=== PATIENT | female | born 2000 | race Caucasian/White ===

== ENCOUNTER 2019-05-26 00:07 | Emergency (ER) | payer OTHER, SELFPAY ==
[2019-05-26 00:21] VITALS: BP 129/67; PULSE 101; RESP 19; TEMP 36.8; O2SAT 100; BMI 23.0
--- NOTE | 2019-05-26 01:20 | ED_ITS ---
HPI - Back Pain/Injury General Chief Complaint: Back Pain/Injury Stated Complaint: back pain Time Seen by Provider: 05/26/19 00:09 Source: patient Mode of arrival: Wheelchair Limitations: no limitations History of Present Illness HPI Narrative: 18-year-old female nonsmoker presents with multiple family members in the chief complaint severe sharp and stabbing right lower back pain with radiation down her right leg. 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 She has been to physical therapy and was recently cleared for light duty at work. This evening, in the absence of any significant injury, she developed a severe sharp and stabbing pain with radiation down her right leg. She states that she was again bending and twisting. She denies any direct trauma. She denies fever or chills. She denies any trouble controlling bowel or bladder she denies saddle anesthesia. MD Complaint: back pain Onset (ago): hour(s) Duration: constant Similar Symptoms Previously: Yes Location: lumbar spine Severity: severe Quality: sharp and stabbing Radiation: right leg Relieving factors: immobilization Exacerbating factors: movement Context: while lifting and turning/twisting Associated symptoms: denies other symptoms Related Data Previous Rx's Medication Instructions Recorded hydrocodone-acetaminophen 1 tab PO Q4-6H PRN #10 tab 05/26/19 ketorolac 10 mg PO Q6H PRN #14 tab 05/26/19 lidocaine [Lidoderm] 1 patch TOP DAILY #15 each 05/26/19 prednisone 10 mg PO DAILY #30 tab 05/26/19 Allergies Allergy/AdvReac Type Severity Reaction Status Date / Time No Known Drug Allergies Allergy Verified 05/26/19 01:29 Review of Systems Constitutional Constitutional: Denies chills, Denies fatigue, Denies fever(s), Denies frequent falls, Denies lethargy and Denies weakness Eyes Eyes: Denies change in vision, Denies eye discharge, Denies irritation and Denies loss of vision ENT Ears, Nose, Mouth, and Throat: Denies change in voice, Denies dizziness, Denies neck pain, Denies sore throat and Denies throat swelling Cardiovascular Cardiovascular: Denies chest pain, Denies irregular heart rhythm, Denies lightheadedness, Denies palpitations, Denies dyspnea, Denies dyspnea on exertion and Denies orthopnea Respiratory Respiratory: Denies cough, Denies dyspnea, Denies dyspnea on exertion and Denies wheezing Gastrointestinal Gastrointestinal: Denies abdominal pain, Denies change in bowel habits, Denies diarrhea, Denies nausea and Denies vomiting Genitourinary Genitourinary: Denies hematuria, Denies flank pain, Denies urinary incontinence and Denies urinary urgency Musculoskeletal Musculoskeletal: Reports back pain, Reports limited range of motion, Denies muscle weakness, Denies neck pain, Denies numbness, Reports radiating pain into limb and Denies tingling Integumentary/Breasts Skin/Breast: Denies pruritus, Denies erythema, Denies rash and Denies wounds Neurologic Neurologic: Denies behavioral changes, Denies confusion, Denies dizziness, Denies frequent falls, Denies loss of vision, Denies numbness, Denies tingling and Denies weakness Psychiatric Psychiatric: Denies anxiety, Denies behavioral changes, Denies confusion, Denies depression, Denies homicidal ideation and Denies suicidal ideation Endocrine Endocrine: Denies fatigue, Denies flushing and Denies palpitations Hematologic/Lymphatic Hematologic/Lymphatic: Denies easy bruising Allergic/Immunologic Allergic/Immunologic: Denies urticaria, Denies throat swelling and Denies wheezing Patient History Social History Smoking Status: Never smoker Smoking Status: Never smoker Substance Use Type: does not use Exam Narrative Exam Narrative: GENERAL: [18] year old patient appears stated age. Well- nourished, well-developed patient, in mild distress. Tearful, in pain HEAD: Atraumatic. Normocephalic. EYES: Pupils equal round and reactive. Extraocular motions intact. No scleral icterus. No injection or drainage. ENT: Nose without bleeding, purulent drainage. Throat without erythema, tonsillar hypertrophy or exudate. Airway patent. NECK: Trachea midline. Non tender CARDIOVASCULAR: Regular rate and rhythm without murmurs, gallops, or rubs. RESPIRATORY: Clear to auscultation. Breath sounds equal bilaterally. No wheezes, rales, or rhonchi. GASTROINTESTINAL: Abdomen soft, non-tender, nondistended. EXTREMITIES: No edema or joint tenderness. BACK: metal cut off saw tender but free of any obvious external abnormalities. Patient exam notes decreased range of motion and muscle spasm, but no CVA tenderness, or vertebral point tenderness. There are no symptoms of cauda equina such as saddle anesthesia, and decreased reflexes, decreased sensation or strength. NEURO: AOx3. SKIN: No rash or erythema of visible areas Initial Vital Signs Initial Vital Signs: Vital Signs Temperature 98.3 F 05/26/19 00:21 Pulse Rate 101 H 05/26/19 00:21 Respiratory Rate 19 05/26/19 00:21 Blood Pressure 129/67 05/26/19 00:21 Pulse Oximetry 100 05/26/19 00:21 Course Orders Ordered: Discontinued Medications Hydrocodone Bitart/Acetaminophen (Vicodin 5/325 Prepack) 1 bottle MISC SEEINSTR ONE Stop: 05/26/19 01:21 Last Admin: 05/26/19 01:30 Dose: 1 bottle Documented by: BIANCAFARL Cefazolin Sodium (Keflex 250 Mg Prepack) 1 bottle MISC SEEINSTR ONE Stop: 05/26/19 01:32 Ketorolac Tromethamine (Toradol) 60 mg IM NOW ONE Stop: 05/26/19 01:21 Last Admin: 05/26/19 01:30 Dose: 60 mg Documented by: CARLOSL Lidocaine (Lidoderm) 1 each TOP NOW ONE Stop: 05/26/19 01:27 Last Admin: 05/26/19 01:33 Dose: 1 each Documented by: BIANCAFARL Prednisone (Deltasone) 40 mg PO NOW ONE Stop: 05/26/19 01:21 Last Admin: 05/26/19 01:30 Dose: 40 mg Documented by: ESTEVAN Vital Signs Vital signs: Vital Signs - 8 hr 05/26/19 00:21 Temperature 98.3 F Pulse Rate 101 H Respiratory Rate 19 Blood Pressure 129/67 Pulse Oximetry 100 MDM - Back Pain/Injury MDM Narrative Medical decision making narrative: Multiple etiologies for patient's symptoms considered including: [Lumbar radiculopathy versus epidural abscess versus cauda equina versus other] Patient's symptoms improved or duration of stay with above-stated therapies. Findings and discharge diagnosis discussed with patient/family followed by verbalization of understanding Return precautions discussed with patient/family whom verbalize understanding. Discharge Plan Departure Patient Disposition: Home Clinical Impression: Back pain of lumbar region with sciatica Instructions: DI for Back Strain or Sprain Activity Restrictions/Additional Instructions: *You have been diagnosed with [acute lumbar pain with radiculopathy] *What to do: *Take medications as directed *Follow up with your primary care provider in 2-3 days, call for an appointment. Let them know you were seen in the Emergency Department and that we ask that you be seen in follow up *Return to ER if you should have any new, worsening or concerning symptoms You have been prescribed narcotic medications. While on these medications you cannot drive or operate heavy machinery. Additionally you cannot sign legal d ocuments or perform any duties such as this. 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 Please understand that we cannot provide further refills of narcotics or controlled substances through the ED and your pain management will need to be through your Primary Care Provider Prescriptions: New hydrocodone-acetaminophen 5-325 mg tablet 1 tab PO Q4-6H PRN (Reason: pain) Qty: 10 RF: 0 ketorolac 10 mg tablet 10 mg PO Q6H PRN (Reason: pain) Qty: 14 RF: 0 lidocaine [Lidoderm] 5 % adhesive patch,medicated 1 patch TOP DAILY Qty: 15 RF: 0 prednisone 10 mg tablet 10 mg PO DAILY Qty: 30 RF: 0
[2019-05-26] MEDS: predniSONE 20 MG TABLET 40 MG PO (01:30)
[2019-05-26] MEDS: HYDROCODONE/ACET 5/325 PREPACK 1 BOTTLE MISC (01:30)
[2019-05-26] MEDS: KETOROLAC 60 MG/2 ML VIAL IM (01:30)
[2019-05-26] MEDS: LIDOCAINE PATCH 1 EACH ADH..PATCH TOP (01:33)
[2019-05-26 02:17] VITALS: BP 115/61; PULSE 83; RESP 16; O2SAT 99
== END 2019-05-26 02:17 | disposition home or self-care (01) ==
PROVIDERS: Emergency Provider Emergency Medicine
DX: M54.40 Lumbago with sciatica, unspecified side (principal)
CPT/HCPCS: 81003; 96372; 99283; J1885

== ENCOUNTER → 2019-06-15 18:48 | Outpatient (CLI) | payer OTHER, SELFPAY ==
--- NOTE | 2019-06-15 | DI.MRI.S_ITS ---
PROCEDURE: MR LUMBAR SPINE WO CON INDICATIONS: RADICULOPATHY, LUMBAR REGION TECHNIQUE: Noncontrast sagittal T1 spin echo and T2 fast echo, sagittal STIR, axial T1 and T2 fast spin echo through the lumbar spine. In cases with scoliosis, additional coronal T2 fast spin echo may be performed. COMPARISON: None. FINDINGS: Image quality: Excellent. Alignment and Curvature: No plain films are available for comparison, for numbering purposes. Thus, for the purposes of this examination, 5 lumbar type vertebral bodies will be presumed, as denoted on the montage panel. This should be confirmed and correlated with plain films, prior to any lumbar spinal intervention.There is normal bony alignment. Bone Marrow: Marrow is of normal overall signal. No acute vertebral body compression fractures. Spinal Cord: Conus medullaris terminates at the mid L2 level. Visualized cord demonstrates normal signal and size. Paraspinous Soft Tissues: No paravertebral masses. L1-L2: Normal appearance. L2-L3: Normal appearance. L3-L4: Mild facet hypertrophy bilaterally. No significant canal, nor foraminal stenosis. L4-L5: Mild facet and ligament flavum hypertrophy bilaterally. No significant canal, nor foraminal stenosis. L5-S1: Mild diffuse disc bulge with superimposed right paracentral protrusion. Mild bilateral facet hypertrophy. No significant canal, nor foraminal stenosis. IMPRESSION: 1. Multilevel degenerative disc and facet disease, causing mild multilevel canal and foraminal stenoses. No neural impingement. Dictated by: Kalyani Otero M.D. on 06/16/2019 at 8:28 Approved by: Kalyani Otero M.D. on 06/16/2019 at 8:30
== END ==
PROVIDERS: Referring Provider Physician Assistant; Visit Provider Physician Assistant
DX: M51.17 Intervertebral disc disorders with radiculopathy, lumbosacral region (principal)
CPT/HCPCS: 72148

== ENCOUNTER 2020-07-09 18:38 | Emergency (ER) | payer BC, SELFPAY ==
[2020-07-09 18:48] VITALS: BP 139/79; PULSE 78; RESP 14; TEMP 36.8; O2SAT 100; BMI 25.6
--- NOTE | 2020-07-09 18:48 | DI.RAD.S_ITS ---
PROCEDURE: XR FINGER LT MIN 2V INDICATIONS: jammed between two wooden tables TECHNIQUE: AP hand, 2 views of the left finger(s) acquired. COMPARISON: None. FINDINGS: Bones: No fractures or dislocations. No suspicious bony lesions. Soft tissues: No suspicious soft tissue calcifications. IMPRESSION: No fracture. If the patient's symptoms do not improve recommend followup radiographs in 10 days to assess for healing sclerosis/occult injury. Dictated by: Evaristo Schuster M.D. on 07/09/2020 at 19:53 Approved by: Evaristo Schuster M.D. on 07/09/2020 at 19:54
--- NOTE | 2020-07-09 19:37 | ED.UPPEXIN ---
HPI - Extremity Injury (Upper) <KIMBERLEY Beckett - Last Filed: 07/09/20 20:26> General Chief Complaint: Extremity Injury, Upper Stated Complaint: thinks broke pinky left hand Time Seen by Provider: 07/09/20 19:06 Source: patient Mode of arrival: Family Vehicle Limitations: no limitations History of Present Illness HPI narrative: This is a 20-year-old female, no contributory medical history, nonsmoker, presents to ED with chief complain of left little proximal finger pain and swelling. Patient was moving a wooden table with her brother and accidentally smashed the affected finger in between 2 wooden people's. Patient reports she heard loud cracking noise and this happen. Right dominant hand. Patient is able to flex affected fingers and reports intact sensation. She denies skin injury with this. She had used ice pack which helped with discomfort before coming into ED. she did not take any medication prior coming into ED. Related Data Allergies Allergy/AdvReac Type Severity Reaction Status Date / Time No Known Drug Allergies Allergy Verified 07/09/20 18:47 Review of Systems <KIMBERLEY Beckett - Last Filed: 07/09/20 20:26> Review of Systems Narrative: General: Denies fever, chills, fatigue, malaise, sweats. Respiratory: Denies dyspnea, cough, wheezing, hemoptysis, sputum. Cardiovascular: Denies chest pain, palpitations, orthopnea, edema. Gastrointestinal: Denies nausea, vomiting, abdominal pain, diarrhea, constipation, melena. Musculoskeletal: See HPI Skin: Denies rash, skin lesions, or other. Patient History <KIMBERLEY Beckett - Last Filed: 07/09/20 20:26> Medical History No significant past medical history Surgical History No pertinent past surgical history Social History Smoking Status: Never smoker Smoking Status: Never smoker alcohol intake frequency: 0-2 drinks per day Substance Use Type: does not use Exam <KIMBERLEY Beckett - Last Filed: 07/09/20 20:26> Narrative Exam Narrative: General appearance: well developed, well nourished, in no acute distress. Head: normocephalic, atraumatic, no scalp lesions, non-tender. ENT: Hearing grossly intact. Airway patent. Neck/Thyroid: neck supple, full range of motion, no visible masses or meningeal signs. No JVD, non-tender without lymphadenopathy. Skin: no suspicious rashes, lesions over visible areas. Warm and dry and appropriate color for ethnicity. Heart: no clubbing, no cyanosis, no edema. Lungs: Breathing even and unlabored. No stridor. No accessory muscles used. Able to speak in full sentences. Chest: normal shape and expansion. Abdomen: non-obese, non-distended. Neurologic: alert and oriented. Cognitive exam, SENIOR WEB DEVELOPER and PNS grossly intact on informal exam. Psych: good eye contact, normal affect. Initial Vital Signs Initial Vital Signs: Vital Signs Temperature 98.3 F 07/09/20 18:48 Pulse Rate 78 07/09/20 18:48 Respiratory Rate 14 07/09/20 18:48 Blood Pressure 139/79 07/09/20 18:48 Pulse Oximetry 100 07/09/20 18:48 Extrem Left upper extremity: wrist Details: normal to inspection and normal ROM and hand Details: normal capillary refill, neuromotor exam normal, neurosensory exam normal, tendon exam normal, tenderness Location: of the 5th digit (proximal phalanx), vascular exam Details: radial pulse present, normal ROM of fingers and swelling Location: of the 5th digit Location: at the proximal phalanx; no abrasions, no lacerations and no ecchymosis <Jasper Grover DO - Last Filed: 07/10/20 01:25> Initial Vital Signs Initial Vital Signs: Vital Signs Temperature 98.3 F 07/09/20 18:48 Pulse Rate 78 07/09/20 18:48 Respiratory Rate 14 07/09/20 18:48 Blood Pressure 139/79 07/09/20 18:48 Pulse Oximetry 100 07/09/20 18:48 Procedures <KIMBERLEY Beckett - Last Filed: 07/09/20 20:26> Orthopedic Splinting/Casting Injury #1: Side: left Upper Extremity Injury Location: finger (little finger) Upper Extremity Immobilizer: aluminum form splint Post splinting neuro exam: intact Post splinting vascular exam: intact Placed by: Nursing Scores <KIMBERLEY Beckett - Last Filed: 07/09/20 20:26> GCS Perham coma scale eye opening: Spontaneous Perham coma scale verbal response: Orientated Ashley coma scale motor response: Obey commands Ashley coma scale total score: 15 Course <SURI BeckettP - Last Filed: 07/09/20 20:26> Orders Ordered: ED Orders 07/09/20 18:48 XR finger LT min 2V Stat Discontinued Medications Acetaminophen (Acetaminophen 325 Mg Tablet) 650 mg PO NOW ONE Stop: 07/09/20 19:33 Last Admin: 07/09/20 20:10 Dose: 650 mg Documented by: HEATHER Ibuprofen (Ibuprofen 400 Mg Tablet) 400 mg PO NOW ONE Stop: 07/09/20 19:33 Last Admin: 07/09/20 20:11 Dose: 400 mg Documented by: HEATHER Vital Signs Vital signs: Vital Signs - 8 hr 07/09/20 18:48 07/09/20 20:41 Temperature 98.3 F Pulse Rate 78 79 Respiratory Rate 14 12 Blood Pressure 139/79 116/78 Pulse Oximetry 100 100 <Jasper Grover DO - Last Filed: 07/10/20 01:25> Orders Ordered: ED Orders 07/09/20 18:48 XR finger LT min 2V Stat Discontinued Medications Acetaminophen (Acetaminophen 325 Mg Tablet) 650 mg PO NOW ONE Stop: 07/09/20 19:33 Last Admin: 07/09/20 20:10 Dose: 650 mg Documented by: HEATHER Ibuprofen (Ibuprofen 400 Mg Tablet) 400 mg PO NOW ONE Stop: 07/09/20 19:33 Last Admin: 07/09/20 20:11 Dose: 400 mg Documented by: HEATHER Vital Signs Vital signs: Vital Signs - 8 hr 07/09/20 18:48 07/09/20 20:41 Temperature 98.3 F Pulse Rate 78 79 Respiratory Rate 14 12 Blood Pressure 139/79 116/78 Pulse Oximetry 100 100 MDM - Extremity Injury (Upper) <KIMBERLEY Beckett - Last Filed: 07/09/20 20:26> Differential Diagnosis Differential diagnosis: Likely finger sprain, dislocation of finger and other (Finger fracture,) Medical Records Attestation: I reviewed the patient's medical records. Imaging Data XR-Finger LT: Radiologist's Impression: [address] [id number] ReportSigned Patient: May Galan MMR#: [id number]: [id number]:[id number]/Sex: 20 / FDate of Service: 07/09/20Loc: EDAccession Number: [id number] Procedure: XR finger LT min 2V Ordering Provider: Jasper Grover D.O. PROCEDURE: XR FINGER LT MIN 2V INDICATIONS: jammed between two wooden tables TECHNIQUE: AP hand, 2 views of the left finger(s) acquired. COMPARISON: None. FINDINGS: Bones: No fractures or dislocations. No suspicious bony lesions. Soft tissues: No suspicious soft tissue calcifications. IMPRESSION: No fracture. If the patient's symptoms do not improve recommend followup radiographs in 10 days to assess for healing sclerosis/occult injury. Dictated by: Evaristo Schuster M.D. on 07/09/2020 at 19:53 Approved by: Evaristo Schuster M.D. on 07/09/2020 at 19:54 [facility] Narrative Medical decision making narrative: This is a healthy 20 year female who presents to ED with chief complain of left non dominant hand little finger swelling and pain to proximal balance after affected finger got smashed by 2 wooden table. Patient has intact sensation, cap refill, mobility. She was able to flex and extend affected finger against resistance. X-ray test does not show fractures, dislocations. Affected finger splinted finger splint. Patient was medicated with Tylenol and Motrin. Provided cool pack for comfort and swelling. She advised to continue with the RICE therapy. Return precautions and patient verbalized understanding and agreement with the treatment plan. Discharge Plan Departure Patient Disposition: Home Clinical Impression: Contusion of finger of left hand Qualifiers: Encounter type: initial encounter Finger: little finger Damage to nail status: without damage Qualified Code(s): S60.052A - Contusion of left little finger without damage to nail, initial encounter Instructions: DI for Contusion Activity Restrictions/Additional Instructions: You have been diagnosed with [x-ray test does not show acute findings such as fractures or dislocations. ]. What to do: *Take your medications as directed. You can take [id number] Tylenol and or Motrin as needed. Continue with RICE therapy for next 2-3 days. Use a finger splint as needed for pain for next 2-3 days. *Follow up with your primary care provider in 2-3 days, call for an appointment. Let them know you were seen in the ED and that we asked you to be seen in follow up. *Return to ED if you have any new, worsening, or concerning symptoms, such as [worsening pain, tingling/numbness/weakness to affected finger, chest pain, breathing difficulty, fever or any acute concerns]. Referrals: Moriah Walker PA-C [Non-Staff] - <Jasper Grover DO - Last Filed: 07/10/20 01:25> Cosign ED Attending Cosignature Attestation: I was immediately available in the department for consultation. This documentation has been reviewed and I agree with assessment and plan. Supervised by Jasper Grover DO
[2020-07-09] MEDS: ACETAMINOPHEN 325 MG TABLET 650 MG PO (20:10)
[2020-07-09] MEDS: IBUPROFEN 400 MG TABLET PO (20:11)
[2020-07-09 20:41] VITALS: BP 116/78; PULSE 79; RESP 12; O2SAT 100
== END 2020-07-09 20:42 | disposition home or self-care (01) ==
PROVIDERS: Emergency Provider Nurse Practitioner Family
DX: S67.197A Crushing injury of left little finger, initial encounter (principal); S60.052A Contusion of left little finger without damage to nail, initial encounter; W23.0XXA Caught, crushed, jammed, or pinched between moving objects, initial encounter
CPT/HCPCS: 29130; 73140; 99283

== ENCOUNTER → 2023-11-16 11:31 | Outpatient (CLI) | payer OTHER, SELFPAY ==
[2023-11-16 12:31] LABS: Influenza A - CEPHEID Flu A NEGATIVE (NEGATIVE); Influenza B - CEPHEID Flu B NEGATIVE (NEGATIVE); Respiratory Syncytial Virus Negative (Negative)
[2023-11-16 12:41] LABS: COVID-19 CEPHEID 4-PLEX PCR Negative (Negative)
== END ==
PROVIDERS: Visit Provider Nurse Practitioner Family
DX: J02.9 Acute pharyngitis, unspecified (principal); R05.1 Acute cough
CPT/HCPCS: 0241U; 87070

== ENCOUNTER → 2023-11-16 12:44 | Outpatient (CLI) | payer OTHER, SELFPAY ==
--- NOTE | 2023-11-16 12:46 | DI.RAD.S_ITS ---
PROCEDURE: XR CHEST 2V INDICATIONS: Short of breath TECHNIQUE: 2 views of the chest were acquired. COMPARISON: None. FINDINGS: Surgical changes and devices: None. Lungs and pleura: Moderate size airspace opacity involving right midlung field extending to right hilar region. Possible small infiltrate versus atelectasis at left lung base is seen. No pleural effusions or pneumothorax. Mediastinum: Mediastinal contours are normal. Heart size is normal. Bones and chest wall: No suspicious bony abnormalities. Soft tissues appear unremarkable. IMPRESSION: Finding is suggestive of a moderate size right lower lobe infiltrate. Possible small left lower lobe infiltrate versus atelectasis. Follow-up until resolution is recommended. Dictated by: Dandre Brown M.D. on 11/16/2023 at 13:21 Approved by: Dandre Brown M.D. on 11/16/2023 at 13:22
== END ==
PROVIDERS: Referring Provider Nurse Practitioner Family; Visit Provider Nurse Practitioner Family
DX: J02.9 Acute pharyngitis, unspecified (principal); R06.02 Shortness of breath; R05.1 Acute cough
CPT/HCPCS: 0241U; 71046; 87070

== ENCOUNTER → 2023-12-12 09:46 | Outpatient (CLI) | payer OTHER, SELFPAY ==
--- NOTE | 2023-12-12 09:48 | DI.RAD.S_ITS ---
PROCEDURE: XR CHEST 2V INDICATIONS: Pneumonia, unspecified organism TECHNIQUE: 2 views of the chest were acquired. COMPARISON: [facility], CR, XR CHEST 2V, 11/16/2023, 12:48. FINDINGS: Surgical changes and devices: None. Lungs and pleura: Lungs are clear. No pleural effusions or pneumothorax. Mediastinum: Mediastinal contours are normal. Heart size is normal. Bones and chest wall: No suspicious bony abnormalities. Soft tissues appear unremarkable. IMPRESSION: No acute cardiopulmonary pathology. Dictated by: Dandre Brown M.D. on 12/12/2023 at 13:48 Approved by: Dandre Brown M.D. on 12/12/2023 at 13:54
== END ==
PROVIDERS: PCP Physician Assistant Medical; Referring Provider Physician Assistant Medical; Visit Provider Physician Assistant Medical
DX: J18.9 Pneumonia, unspecified organism (principal)
CPT/HCPCS: 71046